=== PATIENT | female | born 1955 | race Caucasian/White ===

== ENCOUNTER 2021-01-19 14:54 | Outpatient (REF) | payer OTHER, SELFPAY ==
--- NOTE | ~2021-01-19 | XR_ITS ---
EXAMINATION: KNEE X-RAY CLINICAL INFORMATION: Right knee pain COMPARISON: None TECHNIQUE: Standing AP view of both knees and lateral and sunrise view of the right knee FINDINGS: Right knee: There is mild valgus angulation. Bone alignment is otherwise normal. There is tricompartment arthritis with joint space narrowing and osteophyte formation. There is a large joint effusion. Left knee: The left patella is more laterally positioned than the right. AP view of the left knee is otherwise unremarkable. XR/XR knee standing BI IMPRESSION: Right knee: Tricompartment arthritis, joint effusion and mild valgus angulation.
--- NOTE | ~2021-01-19 | XR_ITS ---
EXAMINATION: KNEE X-RAY CLINICAL INFORMATION: Right knee pain COMPARISON: None TECHNIQUE: Standing AP view of both knees and lateral and sunrise view of the right knee FINDINGS: Right knee: There is mild valgus angulation. Bone alignment is otherwise normal. There is tricompartment arthritis with joint space narrowing and osteophyte formation. There is a large joint effusion. Left knee: The left patella is more laterally positioned than the right. AP view of the left knee is otherwise unremarkable. XR/XR knee RT 2V IMPRESSION: Right knee: Tricompartment arthritis, joint effusion and mild valgus angulation.
== END 2021-01-19 14:55 | disposition home or self-care (01) ==
LOC: HO.HOSX 14:54
PROVIDERS: Visit Provider Orthopaedic Surgery
DX: M25.562 Pain in left knee (principal); M25.561 Pain in right knee
CPT/HCPCS: 73560; 73565

== ENCOUNTER → 2021-01-20 09:47 | Outpatient (BNVA) | payer OTHER, SELFPAY | PROVIDERS: PCP Family Medicine; Visit Provider Orthopaedic Surgery | DX: M17.11 Unilateral primary osteoarthritis, right knee (principal) | CPT/HCPCS: 20610; J1040 ==

== ENCOUNTER → 2021-09-15 15:13 | Outpatient (BNVA) | payer OTHER, SELFPAY | PROVIDERS: Visit Provider Physician Assistant | DX: M17.11 Unilateral primary osteoarthritis, right knee (principal) | CPT/HCPCS: 20610; J1040 ==

== ENCOUNTER → 2021-11-15 09:05 | Outpatient (BNVA) | payer OTHER, SELFPAY | PROVIDERS: PCP Family Medicine; Visit Provider Orthopaedic Surgery | DX: Z01.812 Encounter for preprocedural laboratory examination (principal); Z01.810 Encounter for preprocedural cardiovascular examination ==

== ENCOUNTER → 2021-12-16 12:32 | Outpatient (BNVA) | payer OTHER, SELFPAY | PROVIDERS: Visit Provider Physician Assistant ==

== ENCOUNTER 2021-12-21 08:05 | Inpatient (IN) | payer OTHER, SELFPAY ==
--- NOTE | 2021-12-09 | ECG_ITS ---
Test Reason : preop Blood Pressure : / mmHG Vent. Rate : 072 BPM Atrial Rate : 072 BPM P-R Int : 160 ms QRS Dur : 112 ms QT Int : 398 ms P-R-T Axes : 078 -59 062 degrees QTc Int : 435 ms Normal sinus rhythm Left axis deviation Minimal voltage criteria for LVH, may be normal variant ( [place] product ) Abnormal ECG No previous ECGs available Referred By: Justin Gonsalez Electronically Signed By:FRANCISCO J GAVIRIA
[2021-12-09 12:01] VITALS: BP 134/76; PULSE 68; RESP 20; O2SAT 96; BMI 37.1
--- NOTE | 2021-12-09 12:20 | P.CONAN_ITS ---
Documented by User: Alva Arguelles NP 12/20/21 10:35 HPI - Anesthesia Eval Consult details Narrative: 66yo F for Right Knee Replacement Total PCP cleared [facility] Active Problems Active Problems: All Active Problems (Updated 12/09/21 @ 11:56 by Alicia Wiley, GINO) Primary osteoarthritis of right knee (Acute) Past Medical History Medical History Laurie-Danlos syndrome Hyperlipidemia Hypertension Osteoarthritis Family History Family History Father No problems noted. Mother No problems noted. Family history of problems with anesthesia: No Surgical History Surgical History History of bowel resection History of total left hip replacement Hx of colonoscopy Hx of right inguinal hernia repair History of Problems with Anesthesia: No Social History Social History Are you a primary daycare manager to a significant other at home: No Do you presently have visiting nurse or other home services: No Alcohol intake: current Alcohol intake frequency: a few times a week Patient Tobacco Use Status: Former Tobacco user Quit Date: 9 yrs ago Tobacco use type: Cigarette Second Hand Smoke Exposure: No Use of substances other than those prescribed or required for medical reasons: Yes Substance Use Frequency: Occasionally Have you been hit, kicked, punched, or otherwise hurt by someone within the past year? If so, by whom?: No Are you DNR?: No Advance Directives: No Advance Directives Information Provided: Yes (Given to patient - Daughter Betty tolliver HCP) Advance Directives on File: No Recently lost weight without trying: No Eating poorly because of decreased appetite: No Nutrition Risks: No Nutritional Risk Patient : No Poor oral hygiene: No (perm lower bridge, chip upper front in back of tooth) Current occupational status: employed Current occupation: mechatronics technician Narrative Narrative: No recent illness NO CP/SOB with >4 mets as mechatronics technician Meds Allergies Allergy/AdvReac Type Severity Reaction Status Date / Time No Known Allergies Allergy Verified 12/21/21 08:56 Home Medications Medication Instructions Recorded Confirmed Last Taken Type hydrochlorothiazide 12.5 mg tablet 12.5 mg PO DAILY 01/20/21 12/09/21 Unknown History ibuprofen 800 mg tablet 800 mg PO Q4-6H 01/20/21 12/21/21 12/15/21 08:00 History lisinopril 10 mg tablet 10 mg PO DAILY 01/20/21 12/21/21 12/20/21 History docusate sodium 100 mg capsule 100 mg PO BID 12/09/21 12/09/21 Unknown History (Colace) Exam Exam Date and Time: December 09, 2021 1220 Height,Weight and Vital Signs: Height 5 ft 6 in Weight 104.326 kg Last Vital Signs Pulse 68 12/09/21 12:01 Resp 20 12/09/21 12:01 BP 134/76 12/09/21 12:01 Pulse Ox 96 12/09/21 12:01 Pertinent Lab Results Pertinent Lab Results: Labs from outside facility 11/26/21 CBC WNL BMP WNL Narrative Narrative: EKG 12/2021 Vent. Rate : 072 BPM ? ? Atrial Rate : 072 BPM ?? P-R Int : 160 ms? QRS Dur : 112 ms ? ? QT Int : 398 ms ? ? ? P-R-T Axes : 078 -59 062 degrees ?? QTc Int : 435 ms ? Normal sinus rhythm Left axis deviation Minimal voltage criteria for LVH, may be normal variant ( [place] product ) Abnormal ECG No previous ECGs available Airway Mallampati Class: II TM Dist: >3cm Neck ROM: Full Adult Head Mouth w/Numbe Teeth: 1. Implants Heart: RRR Lungs: CTAB Assessment and Plan Final Anesthetic Review Family History of Problems with Anesthesia: No History of Problems with Anesthesia: No Documented by User: Terry Bajwa MD 12/21/21 09:14 [facility] Past Medical History Medical History Laurie-Danlos syndrome Hyperlipidemia Hypertension Osteoarthritis Family History Family History Father No problems noted. Mother No problems noted. Surgical History Surgical History History of bowel resection History of total left hip replacement Hx of colonoscopy Hx of right inguinal hernia repair Social History Social History Are you a primary daycare manager to a significant other at home: No Do you presently have visiting nurse or other home services: No Alcohol intake: current Alcohol intake frequency: a few times a week Patient Tobacco Use Status: Former Tobacco user Quit Date: 9 yrs ago Tobacco use type: Cigarette Second Hand Smoke Exposure: No Use of substances other than those prescribed or required for medical reasons: Yes Substance Use Frequency: Occasionally Have you been hit, kicked, punched, or otherwise hurt by someone within the past year? If so, by whom?: No Are you DNR?: No Advance Directives: No Advance Directives Information Provided: Yes (Given to patient - Daughter Betty tolliver HCP) Advance Directives on File: No Recently lost weight without trying: No Eating poorly because of decreased appetite: No Nutrition Risks: No Nutritional Risk Patient : No Poor oral hygiene: No (perm lower bridge, chip upper front in back of tooth) Current occupational status: employed Current occupation: mechatronics technician Meds Allergies Allergy/AdvReac Type Severity Reaction Status Date / Time No Known Allergies Allergy Verified 12/21/21 08:56 Home Medications Medication Instructions Recorded Confirmed Last Taken Type hydrochlorothiazide 12.5 mg tablet 12.5 mg PO DAILY 01/20/21 12/09/21 Unknown History ibuprofen 800 mg tablet 800 mg PO Q4-6H 01/20/21 12/21/21 12/15/21 08:00 History lisinopril 10 mg tablet 10 mg PO DAILY 01/20/21 12/21/21 12/20/21 History docusate sodium 100 mg capsule 100 mg PO BID 12/09/21 12/09/21 Unknown History (Colace) Exam Airway Adult Head Mouth w/Numbe Teeth: 1. Implants Assessment and Plan Assessment Anesthesia Assessment: Anesthesia Plan Discussed and Chart Reviewed Final Anesthetic Review NPO: Yes ASA Class: III Final Preanesthetic Review: No Changes in Pt Med Stat, Meds/Allgs Chart Reviewed, Consent Obtained/Reviewed and Anes Risks/Benef Reviewed Patient Risk: Intermediate Procedure Risk: Intermediate Anesthetic Plan Anesthetic Plan: MAC:, Spinal and Regional Block Disposition: Standard PACU
[2021-12-09 14:26] LABS: MRSA Nasal PCR NEGATIVE (Negative); SA Nasal PCR NEGATIVE (Negative)
[2021-12-21] VITALS (12 sets, daily range): BP systolic 132–166; BP diastolic 64–87; PULSE 61–81; RESP 14–20; TEMP 35.9–37.4; O2SAT 93–97
--- NOTE | ~2021-12-21 | XR_ITS ---
EXAMINATION: XR KNEE, RIGHT CLINICAL INFORMATION: Right TKA. COMPARISON: None TECHNIQUE: Four views of the right knee. FINDINGS: There is a total right knee arthroplasty with prosthetic components in satisfactory alignment. Immediate postoperative changes are noted along the suprapatellar bursa. XR/XR knee RT 2V IMPRESSION: Total right knee arthroplasty with prosthetic components in satisfactory alignment. Immediate postoperative changes are noted.
[2021-12-21 08:45] LABS: COVID-19 Test Negative (Negative)
[2021-12-21] MEDS: Lactated Ringers 1,000 ML 100 ML IVCONT (09:05)
--- NOTE | 2021-12-21 10:08 | MHC.SHP ---
Pre-Procedural Eval Section A Date of Service: 12/21/21 The patient is an INPATIENT: No Changes since office visit: Yes Patient answered all questions; No Cold of Flu in the past 2 weeks, No New Medical Problems and No Changes in Medication The History & Physical has been completed within 30 days and I have reviewed it.: Yes Section B Chief Complaint: RT TKA Allergies: Allergies Allergy/AdvReac Type Severity Reaction Status Date / Time No Known Allergies Allergy Verified 12/21/21 08:56 Plan I have reviewed the history and physical and performed a pertinent physical examination on my patient. No changes have occurred unless specified.
--- NOTE | 2021-12-21 11:57 | PM.OP ---
Brief Operative Note Date of Service: 12/21/21 Pre-op diagnosis: right knee OA Post-op diagnosis: same Procedure: Right TKA Implants: Styrker triathalon cemented PS 01/06/19TS/32a Surgeon: Justin Gonsalez MD Anesthesia: regional and spinal Was an Internal Medicine Nurse used for this Procedure?: Yes Internal Medicine Nurse: Sirisha Johnson Estimated blood loss (mL): 150 IV fluids (mL): 800 Pathology: other Condition: stable Disposition: PACU
[2021-12-21] MEDS: Dextrose 5 % and 0.45 % NaCl 1,000 ML 80 ML IVCONT (13:23)
[2021-12-21] MEDS: oxyCODONE HCl Immed Release 5 MG TABLET PO ×2 (13:28→17:38)
--- NOTE | 2021-12-21 13:32 | MHC.CM.PN ---
Addendum entered by Hailey Angulo 12/21/21 13:40: INVALID HCP ON FILE CASE MANAGEMENT TO HELP WITH COMPLETION OF NEW DOCUMENT Original Note: REFERRAL PLACED TO [facility] IN ANTICIPATION OF HOME P.T. NEEDS. CASE MANAGEMENT ASSESSMENT TO BE PERFORMED ONCE PATIENT IS ON UNIT
--- NOTE | 2021-12-21 14:31 | MHC.CM.PN ---
PATIENT IS INDEPENDENT WITH HER ADLS. SHE WORKS AND IS ABLE TO TRANSPORT SELF NEW HCP COMPLETED AND UPLOADED INTO [facility]. SHE AGREES TO THE REFERRAL TO [facility]. CASE MANAGEMENT FOLLOWING FOR DC PLANS.
--- NOTE | 2021-12-21 16:29 | P.CONHOSP_ITS ---
History of Present Illness Data of Consult Service Date: 12/21/21 Primary Care Provider: Chance Alfonso MD HPI 66 female with HTN on lisinopril, HCTZ; HLD on no meds, Laurie-Danlos syndrome, and osteoarthtis. She had elective right knee arthroplasty today. She has active medical isues post op. Review of Systems Review of Systems: Gen: no fever Resp: no sob, no cough CV: no chest, no MELGAR, no leg edema GI: No n/v, no abd pain Neuro: No confusion MSK: pain in the operated knee [facility] Medical History (Updated 12/21/21 @ 17:51 by Miguel Rowell MD) Laurie-Danlos syndrome Hyperlipidemia Hypertension Osteoarthritis Family History Father No problems noted. Mother No problems noted. Surgical History History of bowel resection History of total left hip replacement Hx of colonoscopy Hx of right inguinal hernia repair Social History Household Members: Friend(s) Household Members Other:: Room mate Housing: House Are you a primary hiv/aids care nurse to a significant other at home: No Do you presently have visiting nurse or other home services: No Alcohol intake: current Alcohol intake frequency: a few times a week Patient Tobacco Use Status: Former Tobacco user Quit Date: 9 yrs ago Tobacco use type: Cigarette e-Cigarette/Vaping Use: Never Used Second Hand Smoke Exposure: No Substance Use Type: Marijuana service: No Current occupational status: employed Current occupation: housekeeper/custodian/laundry worker Meds Allergies Allergy/AdvReac Type Severity Reaction Status Date / Time No Known Allergies Allergy Verified 12/21/21 08:56 Active Medications: Current Medications Acetaminophen (Acetaminophen 325 Mg Tablet) 650 mg PO Q6H PRN PRN Reason: Pain, Mild (Pain Scale 1-3) Celecoxib (Celecoxib 100 Mg Capsule) 100 mg PO BID [facility] Docusate Sodium (Docusate Sodium 100 Mg Capsule) 100 mg PO BID [facility] Hydrochlorothiazide (Hydrochlorothiazide 12.5 Mg Tablet) 12.5 mg PO DAILY [facility]; Protocol Hydromorphone HCl (Hydromorphone Hcl 1 Mg/Ml Syringe) 0.25 mg IVPUSH Q4H PRN; Protocol PRN Reason: Pain, Severe (Pain Scale 7-10) Dextrose/Sodium Chloride (D51/2ns) 1,000 mls @ 80 mls/hr IVCONT .[id number] [facility] Last Admin: 12/21/21 13:23 Dose: 80 mls/hr Documented by: Cefazolin Sodium/Dextrose (Ancef) 2 gm in 50 mls @ 100 mls/hr IV POSTOP [facility] Lisinopril (Lisinopril 10 Mg Tablet) 10 mg PO DAILY [facility]; Protocol Ondansetron HCl (Ondansetron Hcl 4 Mg/2 Ml Vial) 4 mg IVPUSH Q8H PRN PRN Reason: Nausea and Vomiting Oxycodone HCl (Oxycodone Hcl Immed Release 5 Mg Tablet) 5 mg PO Q4H PRN PRN Reason: Pain, Moderate (Pain Scale 4-6 Last Admin: 12/21/21 13:28 Dose: 5 mg Documented by: Oxycodone HCl (Oxycodone Hcl Er 10 Mg Tab.Er.12h) 10 mg PO BID [facility] Senna (Sennosides 8.6 Mg Tablet) 17.2 mg PO BEDTIME PRN PRN Reason: Constipation Sodium Chloride (0.9 % Sodium Chloride Flush 3 Ml Syringe) 3 ml IVFLUSH QSHIFT [facility] Last Admin: 12/21/21 16:16 Dose: Not Given Documented by: Home Medications Medication Instructions Recorded Confirmed Last Taken Type hydrochlorothiazide 12.5 mg tablet 12.5 mg PO DAILY 01/20/21 12/09/21 Unknown History ibuprofen 800 mg tablet 800 mg PO Q4-6H 01/20/21 12/21/21 12/15/21 08:00 History lisinopril 10 mg tablet 10 mg PO DAILY 01/20/21 12/21/21 12/20/21 History docusate sodium 100 mg capsule 100 mg PO BID 12/09/21 12/09/21 Unknown History (Colace) Physical Exam Vital Signs and Narrative: Vital Signs: Last Vital Signs Temp 97.7 F 12/21/21 15:10 Pulse 73 12/21/21 15:10 Resp 14 12/21/21 15:10 BP 141/73 H 12/21/21 15:10 Pulse Ox 93 12/21/21 15:10 BMI result Body Mass Index 37.1 Const: Other: General: AO X 3, no acute distress Resp: CTA bilateral CVS: S1,S2,RRR GI: +BS, NT, no distention Skin: No rash Neuro: motor grossly intact Psych: appropriate affect Results Labs Labs: Laboratory Results - last 24 hr 12/21/21 08:05 COVID-19 ([facility]) Negative COVID-19 Clin Com See Note Imaging Radiologist's Impressions: Impressions Knee X-Ray 12/21/21 13:21 IMPRESSION: Total right knee arthroplasty with prosthetic components in satisfactory alignment. Immediate postoperative changes are noted. Assessment and Plan Plan 66/Female with HTN, HLD, Elers-Danlos had right TkR 1/HTN--restart home meds of HCTZ, Lisinopril 2/HLD--not on meds 3/s/p right TKR-management per surgery 4/ given no active issues, will sign off
[2021-12-21] MEDS: Docusate Sodium 100 MG CAPSULE PO (20:40)
[2021-12-21] MEDS: Celecoxib 100 MG CAPSULE PO (20:40)
[2021-12-21] MEDS: oxyCODONE HCl ER 10 MG TAB.ER.12H PO (20:41)
[2021-12-21] MEDS: 0.9 % Sodium Chloride Flush 3 ML SYRINGE IVFLUSH (20:42)
[2021-12-22] MEDS: Dextrose 5 % and 0.45 % NaCl 1,000 ML 80 ML IVCONT ×2 (02:38→12:39)
[2021-12-22] MEDS: HYDROmorphone HCl 1 MG/ML SYRINGE 0.25 MG IVPUSH (02:38)
[2021-12-22 03:42] VITALS: BP 146/57; PULSE 78; RESP 16; TEMP 36.7; O2SAT 99
[2021-12-22 05:48] LABS: MANUAL DIFF FLAG NO
[2021-12-22] MEDS: oxyCODONE HCl Immed Release 5 MG TABLET PO ×3 (05:51→17:47)
[2021-12-22 05:58] LABS: Basophils Percent Auto 0.2 % (0-2); Eosinophils Percent Auto 0.3 % (0-4); Hematocrit 27.4 % (37.0-47.0); Hemoglobin 9.5 g/dl (12.0-16.0); Imm Gran Abs Auto 0.03 X10*3/uL (0.00-0.03); Imm Gran Pct Auto 0.5 % (0.0-0.4); Lymphocytes Absolute Auto 0.9 X10*3/uL (1.2-4.9); Mean Corpuscular HGB Conc 34.7 g/dl (31.0-35.0); Mean Corpuscular Hemoglobin 34.7 pg (27.0-33.0); Monocytes Absolute Auto 0.6 X10*3/uL (0.1-1.2); Monocytes Percent Auto 9.4 % (2-11); Neutrophils Absolute Auto 4.3 x10*3/uL (2.0-8.3); Neutrophils Percent Auto 73.6 % (45-73); Platelet Count 147 X10*3/uL (160-400); Red Blood Count 2.74 X10*6/uL (4.20-5.50); Red Cell Distribution Width 12.4 % (11.0-16.0); White Blood Count 5.9 X10*3/uL (4.8-10.8)
[2021-12-22 06:15] LABS: Anion Gap 10 (12-20); Blood Urea Nitrogen 13 mg/dL (9-16); Calcium 8.6 mg/dL (8.4-10.2); Carbon Dioxide 28 mmol/L (22-29); Chloride 102 mmol/L (96-108); Creatinine Clr Calc Pharmacy 91.2; Estimated Glomerular Filt Rate > 60; Glucose Fasting 135 mg/dL (60-99); Potassium 3.8 mmol/L (3.3-5.1); Sodium 136 mmol/L (135-145)
[2021-12-22] MEDS: Celecoxib 100 MG CAPSULE PO ×2 (07:55→19:56)
[2021-12-22] MEDS: hydroCHLOROthiazide 12.5 MG TABLET PO (07:56)
[2021-12-22] MEDS: lisinopriL 10 MG TABLET PO (07:57)
[2021-12-22] MEDS: oxyCODONE HCl ER 10 MG TAB.ER.12H PO ×2 (07:58→19:55)
[2021-12-22] MEDS: Docusate Sodium 100 MG CAPSULE PO (07:59)
[2021-12-22 08:00] VITALS: BP 160/74; PULSE 75; RESP 18; TEMP 36.3; O2SAT 98
--- NOTE | 2021-12-22 08:01 | PM.PNORT ---
Subjective Subjective Date of Service: 12/22/21 Interval history: Postop day 1 status post right total knee arthroplasty No overnight events She has been out of bed using the commode Most her pain is in the posterior aspect of the knee Denies chest pain, shortness of breath or palpitations. Physical Exam Vital Signs: Vital Signs: Last Vital Signs Temp 98.1 F 12/22/21 03:42 Pulse 78 12/22/21 03:42 Resp 16 12/22/21 03:42 BP 146/57 H 12/22/21 03:42 Pulse Ox 99 12/22/21 03:42 BMI result Body Mass Index 37.1 Const: General: cooperative, healthy appearing and no acute distress Resp: Effort & Inspection: normal respiratory effort and able to speak in complete sentences Cardio: Rate: regular rate Peripheral pulses: Peripheral pulses 2+ throughout GI: Palpation (GI): Soft to palpation Skin: General skin exam: no rashes or lesions noted Extrem: Other: Bandage clean dry and intact. Calf supple nontender. Neurovascular intact. Procedures Date of Service Date of Service: 12/22/21 Progress Note: A&P Assessment and plan (1) Status post total right knee replacement: Status: Acute Assessment and Plan: Continue pain mgmnt Begin Aspirin for dvt ppx begin PT for RT TKA Dispo planning-Pending PT eval, pain mgmnt Fall Risk Details Current Medications: Current Medications Acetaminophen (Acetaminophen 325 Mg Tablet) 650 mg PO Q6H PRN PRN Reason: Pain, Mild (Pain Scale 1-3) Aspirin (Aspirin 325 Mg Tablet) 325 mg PO BID [facility] Celecoxib (Celecoxib 100 Mg Capsule) 100 mg PO BID [facility] Last Admin: 12/22/21 07:55 Dose: 100 mg Documented by: Docusate Sodium (Docusate Sodium 100 Mg Capsule) 100 mg PO BID [facility] Last Admin: 12/22/21 07:59 Dose: 100 mg Documented by: Hydrochlorothiazide (Hydrochlorothiazide 12.5 Mg Tablet) 12.5 mg PO DAILY [facility]; Protocol Last Admin: 12/22/21 07:56 Dose: 12.5 mg Documented by: Hydromorphone HCl (Hydromorphone Hcl 1 Mg/Ml Syringe) 0.25 mg IVPUSH Q4H PRN; Protocol PRN Reason: Pain, Severe (Pain Scale 7-10) Last Admin: 12/22/21 02:38 Dose: 0.25 mg Documented by: Dextrose/Sodium Chloride (D51/2ns) 1,000 mls @ 80 mls/hr IVCONT .[id number] [facility] Last Admin: 12/22/21 02:38 Dose: 80 mls/hr Documented by: Cefazolin Sodium/Dextrose (Ancef) 2 gm in 50 mls @ 100 mls/hr IV POSTOP [facility] Lisinopril (Lisinopril 10 Mg Tablet) 10 mg PO DAILY [facility]; Protocol Last Admin: 12/22/21 07:57 Dose: 10 mg Documented by: Ondansetron HCl (Ondansetron Hcl 4 Mg/2 Ml Vial) 4 mg IVPUSH Q8H PRN PRN Reason: Nausea and Vomiting Oxycodone HCl (Oxycodone Hcl Immed Release 5 Mg Tablet) 5 mg PO Q4H PRN PRN Reason: Pain, Moderate (Pain Scale 4-6 Last Admin: 12/22/21 05:51 Dose: 5 mg Documented by: Oxycodone HCl (Oxycodone Hcl Er 10 Mg Tab.Er.12h) 10 mg PO BID [facility] Last Admin: 12/22/21 07:58 Dose: 10 mg Documented by: Senna (Sennosides 8.6 Mg Tablet) 17.2 mg PO BEDTIME PRN PRN Reason: Constipation Sodium Chloride (0.9 % Sodium Chloride Flush 3 Ml Syringe) 3 ml IVFLUSH QSHIFT [facility] Last Admin: 12/22/21 08:00 Dose: Not Given Documented by: Time Spent With Patient Time: Total time spent is greater than 50% in coordination of care (as documented) at patient's floor/unit and/or counseling patient: Time with patient: less than 15 minutes Quality Stroke Does the patient have a stroke diagnosis?: No VTE Prior VTE?: No VTE Risk Level:: Surgical - very high VTE Device Contraindication: N/A - Device Ordered VTE Drug Contraindication: N/A - Med Ordered
--- NOTE | 2021-12-22 08:07 | HO.POSTANES ---
Post Anesthesia Evaluation Post Anesthesia Evaluation Vital Signs: Vital Signs Temp Pulse Resp BP Pulse Ox 12/22/21 03:42 98.1 F 78 16 146/57 H 99 12/21/21 23:22 96.6 F L 81 14 149/74 H 96 Anesthesia: Spinal and Nerve Block Mental Status: Awake Pain Control: Satisfactory (Pain worse after block wore off but improving) Nausea/Vomiting: None Hydration: Adequate Anesthesia-Related Issues: No Anes. Related Issues
--- NOTE | 2021-12-22 09:45 | W.PM.OPN ---
Operative Note Operative Note Date of Service: 12/21/21 Narrative: Date of Service: 12/21/21 Pre-op diagnosis: right knee OA Post-op diagnosis: same Procedure: Right TKA Implants: Styrker triathalon cemented PS 01/06/19TS/32a Surgeon: Justin Gonsalez MD Anesthesia: regional and spinal Was an Drier Transfer Car Operator used for this Procedure?: Yes Drier Transfer Car Operator: Sirisha Johnson Estimated blood loss (mL): 150 IV fluids (mL): 800 Pathology: other Condition: stable Disposition: PACU Procedure in detail: The patient was brought to the operating room and prepped and draped in standard sterile fashion. A time-out was called to identify proper site proper procedure proper surgeon and IV antibiotics were administered. 1 g of IV tranexamic acid was administered. I began by making a midline incision to the retinaculum and performed a medial parapatellar arthrotomy. The patella was translated laterally and the knee was flexed up.The medial compartmetn was eburnated. I performed a small medial peel and resected the infrapatellar fat pad. Kathie's line was then used to drill my intramedullary femoral guide and my distal femur cut of 10 mm was made in 5 degrees of valgus while protecting the soft tissues. I then measured a #3 femur and placed my cutting guide and made my anterior posterior and chamfer cuts protecting the soft tissues at all times. I then made my box but removing the PCL. Once I was satisfied with my cuts I turned my attention to the tibia. I removed the meniscus medially and laterally and , using an external cutting guide, in line with the tibial crest and the third ray, I made my distal tibial cut in 0 deg slope of while protecting the posterior soft tissues at all times. An extension block was used to confirm appropriate amount of bony resection. The knee was well balanced. I then sized a #3 tibia and once I was satisfied that there was complete tibial coverage I placed my trial and with the trial femur in place took the knee through range of motion. I was satisfied with the extension and flexion as well as the stability at 0, 30 and 90 degrees. I then turned my attention to the patella where I removed 1 cm from the undersurface of the patella and then trialed a 32a patellar button. Again the knee was taken through range of motion I was satisfied with the tracking. I then returned to the femur and drilled my femoral lug holes and prepared the tibia. A femoral bone plug was placed and the knee was irrigated copiously. 2 bags of [place] bone cement was mixed on the back table. I then cemented the patella, tibia and femur in standard fashion while applying axial compression. Once the cement was dry and all excess cement had been removed, I trialed different inserts until I selected a #19 TS insert. The final insert was placed and a 3 minutes iodine soak with local TXA was performed. The knee was then closed with a running Quill suture, a 3 0 subcuticular absorbable suture and skin glue. The dressings were then removed and a skin tear measuring 6 cm occurred over the anterior tibia . This required nylon suture closure as there were areas of full-thickness involvement. Sterile dressing were then applied and the patient was brought to the recovery room.
[2021-12-22 12:00] VITALS: BP 146/59; PULSE 74; RESP 18; TEMP 36.6; O2SAT 96
[2021-12-22] MEDS: Aspirin 325 MG TABLET PO ×2 (12:22→19:56)
--- NOTE | 2021-12-22 13:38 | MHC.CM.PN ---
per multi dis rounds dc plan remanins home with hvns for home pt
[2021-12-22] MEDS: Acetaminophen 325 MG TABLET 650 MG PO (15:10)
[2021-12-22 15:23] VITALS: BP 116/58; PULSE 76; RESP 18; TEMP 37.4; O2SAT 96
[2021-12-22] MEDS: 0.9 % Sodium Chloride Flush 3 ML SYRINGE IVFLUSH (17:48)
[2021-12-22 19:23] VITALS: BP 129/55; PULSE 74; RESP 18; TEMP 37.9; O2SAT 96
[2021-12-22 23:17] VITALS: BP 130/59; PULSE 80; RESP 16; TEMP 35.9; O2SAT 95
[2021-12-23] MEDS: HYDROmorphone HCl 1 MG/ML SYRINGE 0.25 MG IVPUSH (02:04)
[2021-12-23 03:35] VITALS: BP 129/60; PULSE 81; RESP 16; TEMP 37.3; O2SAT 94
[2021-12-23] MEDS: Dextrose 5 % and 0.45 % NaCl 1,000 ML 80 ML IVCONT (03:56)
[2021-12-23 04:55] LABS: MANUAL DIFF FLAG NO
[2021-12-23 05:04] LABS: Basophils Percent Auto 0.5 % (0-2); Eosinophils Absolute Auto 0.1 X10*3/uL (0.0-0.4); Eosinophils Percent Auto 2.2 % (0-4); Hematocrit 28.6 % (37.0-47.0); Hemoglobin 9.7 g/dl (12.0-16.0); Imm Gran Abs Auto 0.03 X10*3/uL (0.00-0.03); Imm Gran Pct Auto 0.5 % (0.0-0.4); Lymphocytes Absolute Auto 1.4 X10*3/uL (1.2-4.9); Lymphocytes Percent Auto 21.4 % (20-40); Mean Corpuscular HGB Conc 33.9 g/dl (31.0-35.0); Mean Corpuscular Hemoglobin 34.9 pg (27.0-33.0); Mean Corpuscular Volume 102.9 fL (80.0-98.0); Mean Platelet Volume 9.5 fL (9.4-12.3); Monocytes Absolute Auto 0.6 X10*3/uL (0.1-1.2); Monocytes Percent Auto 8.8 % (2-11); Neutrophils Absolute Auto 4.3 x10*3/uL (2.0-8.3); Neutrophils Percent Auto 66.6 % (45-73); Platelet Count 169 X10*3/uL (160-400); Red Blood Count 2.78 X10*6/uL (4.20-5.50); Red Cell Distribution Width 12.9 % (11.0-16.0); White Blood Count 6.4 X10*3/uL (4.8-10.8)
[2021-12-23 05:16] LABS: Anion Gap 14 (12-20); Blood Urea Nitrogen 10 mg/dL (9-16); Calcium 8.7 mg/dL (8.4-10.2); Carbon Dioxide 27 mmol/L (22-29); Chloride 101 mmol/L (96-108); Creatinine Clr Calc Pharmacy 84.3; Estimated Glomerular Filt Rate > 60; Glucose Fasting 102 mg/dL (60-99); Potassium 3.5 mmol/L (3.3-5.1); Sodium 138 mmol/L (135-145)
[2021-12-23 07:05] VITALS: BP 138/63; PULSE 86; RESP 18; TEMP 37.5; O2SAT 93
[2021-12-23] MEDS: Acetaminophen 325 MG TABLET 650 MG PO (07:29)
[2021-12-23] MEDS: Aspirin 325 MG TABLET PO (07:30)
[2021-12-23] MEDS: lisinopriL 10 MG TABLET PO (07:31)
[2021-12-23] MEDS: oxyCODONE HCl Immed Release 5 MG TABLET PO ×2 (07:31→12:47)
[2021-12-23] MEDS: hydroCHLOROthiazide 12.5 MG TABLET PO (07:31)
[2021-12-23] MEDS: Docusate Sodium 100 MG CAPSULE PO (07:31)
[2021-12-23] MEDS: Celecoxib 100 MG CAPSULE PO (07:31)
--- NOTE | 2021-12-23 08:22 | P.DS_ITS ---
DS: Providers Provider Date of Service: 12/23/21 Date of admission: 12/21/21 08:05 Primary care physician: Chance Alfonso MD Consults: 12/21/21 13:39 Consult to Hospitalist Routine Consulting Provider: Hospitalist Reason For Exam: post op medical management DS: Diagnosis Discharge Diagnosis (1) Status post total right knee replacement: Status: Acute DS: Summary Hospital Course Hospital Course: The patient underwent a successful right total knee arthroplasty, was transferred to PACU and then to the floor to recover. During their stay, their vitals were stable, afebrile at 99.5. Labs were unremarkable, H/H 97./28.6. POD 1 she was started on ASA for dvt ppx and had PT 2x a day. Prior to discharge, her dressing was changed on the lower extremity, dry dressing applied with xeroform. Aquacel clean, dry and intact and she will be discharged home with VNA services. Time Spent with Patient Time attestation: Total time spent providing and/or coordinating discharge services: Discharge coordination time: Less than 30 minutes Quality: Stroke Does the patient have a stroke diagnosis?: No Physical Exam Vital Signs: Vital Signs: Last Vital Signs Temp 99.5 F 12/23/21 07:05 Pulse 86 12/23/21 07:05 Resp 18 12/23/21 07:05 BP 138/63 12/23/21 07:05 Pulse Ox 93 12/23/21 07:05 BMI result Body Mass Index 37.1 Const: General: cooperative, healthy appearing and no acute distress Resp: Effort & Inspection: normal respiratory effort and able to speak in complete sentences Cardio: Rate: regular rate Peripheral pulses: Peripheral pulses 2+ throughout GI: Palpation (GI): Soft to palpation Skin: General skin exam: no rashes or lesions noted Extrem: Other: incision clean dry and intact. Braeden intact. No erythema or joint effusion. Calf supple nontender. Neurovascularly intact. DS: Data Data Completed and Pending Pending studies at discharge: Pending at discharge 12/21/21 11:35 Surgical [PTH] Routine Labs on day of discharge: Laboratory Results - last 24 hr 12/23/21 12/23/21 04:11 04:11 WBC 6.4 RBC 2.78 L Hgb 9.7 L Hct 28.6 L MCV 102.9 H MCH 34.9 H MCHC 33.9 RDW 12.9 Plt Count 169 MPV 9.5 Immature Gran % (Auto) 0.5 H Neut % (Auto) 66.6 Lymph % (Auto) 21.4 Giles % (Auto) 8.8 Eos % (Auto) 2.2 Baso % (Auto) 0.5 Lymph # (Auto) 1.4 Giles # (Auto) 0.6 Eos # (Auto) 0.1 Baso # (Auto) 0.0 Abs Immat Gran (auto) 0.03 Absolute Neuts (auto) 4.3 Absolute Nucleated RBC 0.000 Nucleated RBC % (auto) 0.0 Sodium 138 Potassium 3.5 Chloride 101 Carbon Dioxide 27 Anion Gap 14 BUN 10 Creatinine 0.79 Estim Creat Clear Calc 84.3 Estimated GFR > 60 Fasting Glucose 102 H Calcium 8.7 Discharge Plan Discharge Patient Disposition: Home Health Service Discharge Diagnosis: RT TKA Referrals: Jenelle PAZ [Outside] - 1 Week Sirisha Johnson PA-C [Physician [employer] C[employer] Clerk] - 2 Weeks (01/06/22 1:00 [facility] [place] [facility] Sirisha Johnson PA-C) Discharge Medications: New acetaminophen 325 mg Tablet 650 mg PO Q6H PRN (Reason: Pain, Mild (Pain Scale 1-3)) 30 Days Qty: 240 0RF aspirin 325 mg Tablet 325 mg PO BID 42 Days Qty: 84 0RF oxycodone 5 mg Tablet 5 mg PO Q4H PRN (Reason: Pain, Moderate (Pain Scale 4-6) 7 Days Qty: 42 0RF Continued docusate sodium [Colace] 100 mg Capsule 100 mg PO BID 0RF lisinopril 10 mg tablet 10 mg PO DAILY 0RF hydrochlorothiazide 12.5 mg tablet 12.5 mg PO DAILY 0RF Discontinued ibuprofen 800 mg tablet 800 mg PO Q4-6H 0RF Discharge Orders: Discharge Order (Routine); Ordered 12/23/21 Ordered By: Sirisha Johnson Diet: regular diet Activity on Discharge: Use cane or walker Stand Alone Forms: Patient Portal Discharge page Care Plan Goals: Restore function of joint Health Concerns: none Plan of Treatment: Physical Therapy Pain management DVT prophylaxis Assessment: * Physical Therapy for Total knee arthroplasty: gait training, ROM 0-12, quad strength * Limit stair climbing * No showering, no tub bath-keep dressing clean, dry and intact * ---daily dry dressing changes to right lower extremity skin tear * No driving x6 weeks * Continue Aspirin twice a day x 6 weeks * Follow up with [facility] [place] [facility]ics in 2 weeks
--- NOTE | 2021-12-23 08:26 | P.F2F_ITS ---
Service Date Service Date: 12/23/21 Encounter Date of encounter: 12/23/21 Reasons for Services Signs and symptoms assessed: right knee pain, swelling, difficulty with ambulation. Right lower extremity skin tear- 3inches with nylon sutures. Please apply dry dressing daily. Reason for intermediate: wound care Reason for physical therapy: home safety and mobility, therapeutic exercises, restore joint function, gait/transfer training, ADL training and energy conservation Reason for occupational therapy: home safety and mobility, therapeutic exercises, restore joint function, gait/transfer training, ADL training and energy conservation Overseeing Care: Justin Gonsalez Homebound: Leaving the home is medically contraindicated at this time without the asist of a device and/or another person due th the listed conditions above and below. Reason homebound: unsteady gait / fall risk, leg weakness, pain with ambulation, pain with transfers, poor balance / fall risk and unable to drive Homebound supporting statement: Pt. is considered home bound due to recent surgery. Unable to drive, poor balance, poor gait mechanics. Certification: Based on the above findings, I certify that this patient is confined to the home and needs intermittent intermediate care, physical therapy and/or speech therapy, or continues to need occupational therapy. The patient is under my care, and I have initiated the establishment of the plan of care. The patient will be followed by a physician who will periodically review the plan of care.
--- NOTE | 2021-12-23 08:38 | MHC.CM.PN ---
PT TO DC HOME TODAY WITH CHARLEY PAZ FOR HOME PT. FAMILY TO TRANSPORT
[2021-12-23] MEDS: oxyCODONE HCl ER 10 MG TAB.ER.12H PO (09:49)
[2021-12-23 12:00] VITALS: BP 135/56; PULSE 56; RESP 18; TEMP 36.4; O2SAT 95
== END 2021-12-23 13:46 | disposition home health service (06) | DRG 470 ==
LOC: HO.SSS 08:39 → HO.SSSA 08:40 → HO.S3 13:19
PROVIDERS: Nurse Practitioner; Physician Assistant; Admitting Provider Orthopaedic Surgery; PCP Internal Medicine; Visit Provider Orthopaedic Surgery
PROC: 0SRC0J9 Replacement of Right Knee Joint with Synthetic Substitute, Cemented, Open Approach (ICD-10-PCS; CPT 27447; principal; 2021-12-21 09:30)
DX: M17.11 Unilateral primary osteoarthritis, right knee (principal); Q79.60 Ehlers-Danlos syndrome, unspecified; I10 Essential (primary) hypertension; E78.5 Hyperlipidemia, unspecified; Z20.822 Contact with and (suspected) exposure to COVID-19; Z87.891 Personal history of nicotine dependence; Z79.899 Other long term (current) drug therapy
CPT/HCPCS: 27447; 36415; 73560; 80048; 85025; 86850; 86900; 86901; 87635; 87640; 87641; 88305; 88311; 93005; 97110; 97116; 97162; 97530; C1713; C1776; J0690; J1100; J1170; J2250; J2370

== ENCOUNTER → 2022-01-06 12:45 | Outpatient (BNVA) | payer OTHER, SELFPAY | PROVIDERS: PCP Internal Medicine; Visit Provider Physician Assistant ==

== ENCOUNTER → 2022-02-03 14:08 | Outpatient (BNVA) | payer OTHER, SELFPAY | PROVIDERS: PCP Internal Medicine; Visit Provider Physician Assistant | DX: Z96.651 Presence of right artificial knee joint (principal) ==

== ENCOUNTER 2022-03-17 07:04 | Outpatient (REF) | payer OTHER, SELFPAY | END 2022-03-17 07:05 | disposition home or self-care (01) | LOC: HO.HOSX 07:04 | PROVIDERS: Visit Provider Orthopaedic Surgery | DX: Z13.89 Encounter for screening for other disorder (principal) ==

== ENCOUNTER 2022-03-25 11:00 | Outpatient (RCR) | payer OTHER, SELFPAY ==
--- NOTE | 2022-01-06 14:08 | MHC.PT.EP ---
[facility] [place] Office [place] Office [place] Office [address] [place] Beltrán [address] [phone] F: [phone] F: [phone] F: [phone] F: [phone] Physical Therapy Plan of Care Date of Evaluation: Date of Surgery: 12/21/21 Diagnosis: R TKA Assessment: pt presents post-op R TKA on 12/21/21. pt presents to physical therapy with pain, decreased range of motion, decreased strength, impaired functional mobility, impaired postural awareness, and gait deviations. pt is a good candidate for skilled PT due to age, potential remediation of impairments, typical disease/condition progression and prognosis, comorbidities, and motivation. pt would benefit from tailored strengthening and stretching exercise program, functional training, gait training, postural re-training, neuromuscular re-education, modalities as needed for pain, equipment safety demonstration. Frequency and Duration: The patient will be seen 2x/wk for 6 wks Short Term Goals: pt will be I w/ HEP to promote self-management of condition. pt will improve R knee extension to 0 degrees to normalize gait pattern w/ improved heel strike on even ground w/ LRAD. Longterm Goals: pt will report a statistically significant improvement in self-reported outcome measure, LEFI, to promote return to PLOF. pt will ascend/descend 4 stairs w/ reciprocal pattern to promote ease in accessing basement to be I w/ laundry. Treatment Plan: Modalities to reduce pain, spasms and effusion. Manual therapy to restore motion and function. Therapeutic exercise to improve strength and flexibility. Neuromuscular re-education for posture and balance. Therapeutic activities to return to functional activities of daily living. Electronically signed by: Shelby Campa PT, DPT Please sign and return to therapist. Thank you for your referral.
--- NOTE | ~2022-03-25 | XR_ITS ---
EXAMINATION: 1. RADIOGRAPHS BILATERAL AP STANDING KNEES 2. RADIOGRAPHS RIGHT KNEE, 2 VIEWS CLINICAL INFORMATION: Pain COMPARISON: Right knee radiographs 12/21/2021 and bilateral standing knee radiographs 01/20/2021 TECHNIQUE: Standing AP radiographs of both knees were obtained in addition to lateral and patellar sunrise views of the right knee. FINDINGS: Right knee: Patient is status post right cemented total knee arthroplasty. Components are in expected orientation. No evidence of periprosthetic fracture. There is some hypertrophic bony formation along the lateral aspect of the patella. There is mild soft tissue swelling of the anterior right knee. Left knee: No fracture or dislocation of the left knee. There is mild narrowing of the medial left joint compartment. Small tricompartmental marginal osteophytes of the left knee. XR/XR knee standing BI IMPRESSION: -Unremarkable post arthroplasty radiographs of the right knee. -Mild to moderate degenerative changes of the left knee.
--- NOTE | ~2022-03-25 | XR_ITS ---
EXAMINATION: 1. RADIOGRAPHS BILATERAL AP STANDING KNEES 2. RADIOGRAPHS RIGHT KNEE, 2 VIEWS CLINICAL INFORMATION: Pain COMPARISON: Right knee radiographs 12/21/2021 and bilateral standing knee radiographs 01/20/2021 TECHNIQUE: Standing AP radiographs of both knees were obtained in addition to lateral and patellar sunrise views of the right knee. FINDINGS: Right knee: Patient is status post right cemented total knee arthroplasty. Components are in expected orientation. No evidence of periprosthetic fracture. There is some hypertrophic bony formation along the lateral aspect of the patella. There is mild soft tissue swelling of the anterior right knee. Left knee: No fracture or dislocation of the left knee. There is mild narrowing of the medial left joint compartment. Small tricompartmental marginal osteophytes of the left knee. XR/XR knee RT 2V IMPRESSION: -Unremarkable post arthroplasty radiographs of the right knee. -Mild to moderate degenerative changes of the left knee.
--- NOTE | 2022-04-12 11:25 | MHC.PT.DC ---
[facility] [place] Office [place] Office [place] Office [address] [place] Beltrán [address] [phone] F: [phone] F: [phone] F: [phone] F: [phone] Physical Therapy Discharge Report Diagnosis: R TKA Date of Surgery: 12/21/21 Date of Evaluation: 01/06/22 Date of Discharge: 04/12/22 Treatments to Date: 16 Cancellations to Date: 6 No Shows to Date: 0 Discharge Status: Improved Function Independent with HEP Patient Elected to Stop Discharge Summary: The patient called to discharge herself from physical therapy. She was progressing well in regards to her range of motion and bilateral lower extremity strength. She was still using a cane for ambulation for longer distances. The patient was consistently reporting difficulty with longer duration activities and endurance. She is independent with her home exercise program. She is discharged from this physical therapy plan of care to her home exercise program per her request. Electronically signed by: Shelby Campa PT, DPT Please sign and return to therapist. Thank you for your referral.
== END 2022-04-12 11:25 | disposition home or self-care (01) ==
LOC: HO.PT 11:00
PROVIDERS: Visit Provider Physician Assistant
DX: Z96.651 Presence of right artificial knee joint (principal)
CPT/HCPCS: 73560; 73565; 97110; 97112; 97140; 97162; 97530

== ENCOUNTER 2022-07-08 23:06 | Emergency (ER) | payer OTHER, SELFPAY ==
--- NOTE | ~2022-07-08 | XR_ITS ---
EXAMINATION: XR FOOT, RIGHT CLINICAL INFORMATION: Laceration COMPARISON: None TECHNIQUE: AP, lateral, and oblique views of the right foot. XR/XR foot RT 2V FINDINGS/IMPRESSION: Comminuted fracture of the second distal phalangeal tuft is associated soft tissue swelling laceration distally. No additional fractures. Degenerative changes of the tibiotalar joint. Large plantar calcaneal enthesophyte.
[2022-07-09] VITALS: BP 140/74; PULSE 64; RESP 20; TEMP 36.6; O2SAT 97; BMI 39.5
--- NOTE | 2022-07-09 00:49 | ED_ITS ---
HPI - General Adult General Chief complaint: Extremity Injury, Lower Stated complaint: severe toe inj on right foot Time Seen by Provider: 07/09/22 00:47 Source: patient Mode of arrival: ambulatory Limitations: no limitations History of Present Illness HPI narrative: Patient is a 67 year old female presenting to the emergency department today with a laceration to the right 2nd toe. Patient states that she dropped an empty vodka bottle that she was taking out to the recycling container, onto her foot, and the glass cut her toe. Patient denies any dizziness, lightheadedness, abdominal pain, nausea, vomiting, fever, chills, blurry vision, double vision, loss of vision, chest pain, difficulty breathing, shortness of breath, back pain, night sweats, pain with urination, increased urinary frequency, increased urinary urgency, blood in her urine or stool, syncope or a near syncopal episode, bowel incontinence, bladder incontinence, bowel retention, bladder retention, or any other complaints at this time. 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 Patient states that she just had her tetanus brought up to date 2 years ago. Onset (ago): minute(s) Location: right and lower extremity (2nd toe) Radiation: non-radiation Severity: moderate Severity scale (1-10): 3 Quality: aching Pain Consistency: constant Relieving factors: none Exacerbating factors: none Associated symptoms: denies other symptoms Treatments prior to arrival: none Related Data Home Medications Medication Instructions Recorded Confirmed hydrochlorothiazide 12.5 mg tablet 12.5 mg PO DAILY 01/20/21 01/06/22 lisinopril 10 mg tablet 10 mg PO DAILY 01/20/21 01/06/22 docusate sodium 100 mg capsule 100 mg PO BID 12/09/21 01/06/22 (Colace) Previous Rx's Medication Instructions Recorded acetaminophen 325 mg tablet 650 mg PO Q6H PRN Pain, Mild (Pain 12/23/21 Scale 1-3) 30 days #240 tabs aspirin 325 mg tablet 325 mg PO BID 42 days #84 tabs 12/23/21 oxycodone 5 mg tablet 5 mg PO Q4H PRN Pain, Moderate 01/07/22 (Pain Scale 4-6 7 days #42 tabs amoxicillin 500 mg tablet 2,000 mg PO ONCE 1 day #4 tabs 02/03/22 amoxicillin 875 mg-potassium 1 tab PO BID 10 days #20 tabs 07/09/22 clavulanate 125 mg tablet Allergies Allergy/AdvReac Type Severity Reaction Status Date / Time No Known Allergies Allergy Verified 02/03/22 14:21 Review of Systems Constitutional: Constitutional: Reports no additional constitutional complaints, Denies chills, Denies fever(s) and Denies night sweats Eyes: Eyes: Reports no additional eye complaints, Denies blurry vision, Denies change in vision, Denies diplopia, Denies eye discharge, Denies loss of vision and Denies eye pain ENT: Denies dizziness Cardiovascular: Cardiovascular: Reports no additional cardiovascular complaints, Denies chest pain, Denies lightheadedness, Denies Loss of Consciousness and Denies dyspnea Respiratory: Respiratory: Reports no additional respiratory complaints and Denies dyspnea Gastrointestinal: Gastrointestinal: Reports no additional gastrointestinal complaints, Denies abdominal pain, Denies melena, Denies hematochezia, Denies change in bowel habits and Denies change in stool character Genitourinary: Genitourinary: Denies hematuria, Denies urinary frequency, Denies dysuria, Denies urinary incontinence, Denies urinary hesitancy and Denies urinary urgency Musculoskeletal: Musculoskeletal: Reports no additional musculoskeletal complaints, Denies numbness and Denies tingling Comments: right 2nd toe injury Neurologic: Denies dizziness, Denies loss of vision, Denies numbness and Denies tingling Psychiatric: Psychiatric: Reports no additional psychiatric complaints Endocrine: Endocrine: Reports no additional endocrine complaints Hematologic/Lymphatic: Hematologic/Lymphatic: Reports no additional hematologic/lymphatic complaints Allergic/Immunologic: Allergic/Immunologic: Reports no additional allergic/immunologic complaints FORMERLY [facility] Past Medical History Attestation statement: The following information was validated with the patient. Source: old records reviewed Medical History Laurie-Danlos syndrome Hyperlipidemia Hypertension Osteoarthritis Surgical History History of bowel resection History of total left hip replacement Hx of colonoscopy Hx of right inguinal hernia repair Family History Family History Father No problems noted. Mother No problems noted. Social History Social History Household Members: Friend(s) Household Members Other:: Room mate Housing: House Are you a primary women's health care nurse practitioner to a significant other at home: No Do you presently have visiting nurse or other home services: No Alcohol intake: current Alcohol intake frequency: holidays/special occasions only Patient Tobacco Use Status: Never used Tobacco Tobacco use type: Cigarette e-Cigarette/Vaping Use: Never Used Second Hand Smoke Exposure: No Use of substances other than those prescribed or required for medical reasons: Yes Substance Use Type: Marijuana Advance Directives: No service: No Current occupational status: employed Current occupation: heavy duty custodian Physical Exam ED Vital Signs: Vital Signs - 24 hr 07/09/22 00:00 07/09/22 01:01 07/09/22 02:00 Temperature 97.9 F 97.8 F 97.8 F Pulse Rate 64 67 73 Respiratory Rate 20 18 16 Blood Pressure 140/74 H 116/98 H 145/78 H Pulse Oximetry 97 98 96 Oxygen Delivery Method Room Air Room Air Room Air BMI result Body Mass Index 39.5 Const General: cooperative, no acute distress, alert and awake Nutritional Appearance: well nourished Orientation/consciousness: patient oriented x3 Limitations: no limitations HENMT Head: Yes normal to inspection and Yes atraumatic Ears: hearing grossly normal bilaterally and external ears normal General nose exam: Normal external nose present, no nasal discharge noted and no epistaxis Face and sinus: Yes normal facial exam, No abrasion and No laceration Mouth: Normal oral and palatal mucosa present, no drooling and no muffled voice Eyes General: appearance normal, both eyes and all related structures Periorbital: periorbital findings normal Eyelids: Yes eyelids normal Conjunctivae: conjunctivae normal Pupils: Equal, round and reactive pupils present EOM: EOMs intact bilaterally Neck Neck: Yes normal visual inspection, Yes full ROM and Yes no lymphadenopathy Chest Chest palpation & inspection: normal inspection of the chest Resp Effort & Inspection: normal respiratory effort and able to speak in complete sentences Auscultation: clear to auscultation bilaterally Cardio Rate: regular rate Rhythm: regular rhythm GI Inspection: Yes normal to inspection Neuro General: patient oriented x3 and moves all extremities Cranial nerves: Yes Equal, round and reactive pupils present Cognition (Neuro): normal cognition Motor exam (neuro): 5/5 motor strength present throughout Sensory Exam: Normal double simultaneous stimulation for sensation Coordination: [id number] test normal Extrem Other: 4cm laceration to the right 2nd toe just proximal of the proximal nail fold that goes half way around the toe General: Yes full ROM and Yes capillary refill normal Psych Appearance: grossly normal Mental Status: mental status grossly normal Affect: normal affect Attitude: cooperative Thought process: Normal thought process present Thought content: Normal thought content present Insight: Good insight present (Psych) Procedures Laceration Laceration 1: Site: other (2nd toe) Side (If applicable): right Size (cm): 4 Description: irregular Depth: simple, single layer Local Anesthetic: lidocaine 1% Amount of anesthesia used (mL): 4 Pre-repair: wound explored, irrigated extensively and deep structures intact Skin layer closed with: other (prolene) Size (cm): 6-0 Number of sutures: 5 Technique: simple, interrupted Orthopedic Splinting/Casting Injury #1: Side: right Lower Extremity Injury Location: toe Lower Extremity Immobilizer: post-op shoe Medical Decision Making MDM Narrative Medical decision making narrative: Patient is a 67 year old female presenting to the emergency department today with a 2nd right toe laceration. Patient's physical exam showed a 4cm laceration extending from the medial aspect of the toe, proximal to the proximal nail fold, to the lateral aspect of the toe. Patient's right foot x-ray showed a fracture of the right 2nd toe. I explained my physical exam findings as well as all test results to the patient. I answered all questions asked by the patient. Patient's laceration was repaired, per procedure note. Patient's wound was as well approximated as possible given the amount of tissue damage and swelling. Patient's PMS was present prior to and after the repair. Patient's right foot was placed in a post-op shoe, without incident. Patient's PMS was in tact prior to and after post-op shoe placement. Patient was given a dose of Augmentin here. I stressed the importance of the patient taking her medication as prescribed. I stressed the importance of the patient following up with her primary care provider and an orthopedist. I stressed the importance of the patient returning to the emergency department immediately if her symptoms were to worsen or if she were to develop any dizziness, shortness of breath, difficulty breathing, chest pain, blurry vision, loss of vision, nausea, vomiting, abdominal pain, fever, chills, back pain, or any other complaints. Patient verbalized agreement and understanding with this treatment plan and discharge. Medical Records Medical records reviewed: Yes I reviewed the patient's medical records. Imaging Data Right foot x-ray: Attestation: I personally reviewed and interpreted this imaging study as follows: My impression: 2nd toe fracture. Radiologist's impression: EXAMINATION: XR FOOT, RIGHT CLINICAL INFORMATION: Laceration? COMPARISON: None? TECHNIQUE: AP, lateral, and oblique views of the right foot. XR/XR foot RT 2V FINDINGS/IMPRESSION: Comminuted fracture of the second distal phalangeal tuft is associated soft tissue swelling laceration distally. No additional fractures. Degenerative changes of the tibiotalar joint. Large plantar calcaneal enthesophyte.? Dictated By: Robb Bailey MD Signed By: Electronically signed by Robb Bailey MD 07/09/22 0144 Discharge Plan Discharge Clinical Impression: Laceration of toe, Fracture of toe Patient Disposition: Home, Self-Care Instructions: Care For Your Stitches (ED), Toe Fracture (ED), Post Surgical Shoe (ED) Additional Instructions: Have your stitches evaluated for removal in 10-14 days. Do NOT soak the repaired area. Perform daily wound checks and daily dressing changes. Follow up with your primary care provider and an orthopedic provider. Return to the emergency department immediately if your symptoms worsen or if you develop any dizziness, shortness of breath, difficulty breathing, chest pain, blurry vision, loss of vision, nausea, vomiting, abdominal pain, fever, chills, back pain, or any other complaints. Prescriptions: New amoxicillin-pot clavulanate 875-125 mg tablet 1 tab PO BID 10 Days Qty: 20 0RF No Action oxycodone 5 mg tablet 5 mg PO Q4H PRN (Reason: Pain, Moderate (Pain Scale 4-6) 7 Days Qty: 42 0RF docusate sodium [Colace] 100 mg Capsule 100 mg PO BID acetaminophen 325 mg Tablet 650 mg PO Q6H PRN (Reason: Pain, Mild (Pain Scale 1-3)) 30 Days Qty: 240 0RF aspirin 325 mg Tablet 325 mg PO BID 42 Days Qty: 84 0RF lisinopril 10 mg tablet 10 mg PO DAILY hydrochlorothiazide 12.5 mg tablet 12.5 mg PO DAILY amoxicillin 500 mg tablet 2,000 mg PO ONCE 1 Days Qty: 4 3RF Rx Instructions: take 4 capsules 1 hr prior to dental procedure Referrals: [facility] [place] Family Medicine [Provider Group] (Call to establish and follow up with a primary care provider. If you already have a primary care provider, please follow up with them. ) [facility] [place] Primary Care, [facility] [Provider Group] (Call to establish and follow up with a primary care provider. If you already have a primary care provider, please follow up with them. ) [facility] [place] Primary Care,[facility] [Provider Group] (Call to establish and follow up with a primary care provider. If you already have a primary care provider, please follow up with them. ) [facility] Orthopedic Surgeons [Provider Group] (Call to establish and follow up with an orthopedic provider. ) [facility] Wound Care Management [Provider Group] (Call to establish and follow up with the wound care center. ) Interventions: ED Discharge Assessment Last Done: 07/09/22 02:31 Discharge Date/Time: 07/09/22 02:32 Print Language: Croatian
[2022-07-09 01:01] VITALS: BP 116/98; PULSE 67; RESP 18; TEMP 36.6; O2SAT 98
--- NOTE | 2022-07-09 01:23 | PC.NURSE ---
Assumed care of pt at 1315. Pt states a glass bottle landed on her second toe on her R foot while recycling.
[2022-07-09] MEDS: Lidocaine HCl 1 % MPF 2 ML VIAL 4 ML INFILTRATI (01:48)
[2022-07-09 02:00] VITALS: BP 145/78; PULSE 73; RESP 16; TEMP 36.6; O2SAT 96
--- NOTE | 2022-07-09 02:27 | PC.NURSE ---
Pt a&o, no sob or chest pain. pt has positive cms and pedals pulses to right foot. provider in to assess pt. Boot applied to foot. pt tolerated it well. Will medicate per Mar and discharge home.
[2022-07-09] MEDS: Amoxicillin/Potassium Clav 875 MG TABLET PO (02:30)
== END 2022-07-09 02:32 | disposition home or self-care (01) ==
PROVIDERS: Emergency Provider Emergency Medicine Emergency Medical Services
DX: S91.114A Laceration without foreign body of right lesser toe(s) without damage to nail, initial encounter (principal); W20.8XXA Other cause of strike by thrown, projected or falling object, initial encounter; Y93.89 Activity, other specified; Y92.017 Garden or yard in single-family (private) house as the place of occurrence of the external cause; Y99.9 Unspecified external cause status
CPT/HCPCS: 12042; 73620; 99284

== ENCOUNTER 2022-07-20 09:33 | Outpatient (REF) | payer OTHER, SELFPAY ==
--- NOTE | ~2022-07-20 | XR_ITS ---
EXAMINATION: XR FOOT, RIGHT CLINICAL INFORMATION: Displaced fracture fifth metatarsal. COMPARISON: X-ray of the right foot 07/09/2022. TECHNIQUE: AP, lateral, and oblique views of the right foot. FINDINGS: Distal Phalanx Second Toe: There is fragmentation of the distal aspect of the tuft and persistent soft tissue prominence surrounding this compatible with edema or cellulitis. Unchanged compared to prior. Plantar calcaneal spur unchanged. Remaining bones and joints unremarkable. XR/XR foot RT min 3V IMPRESSION: Marked abnormality of the distal phalanx of the second toe of uncertain etiology but unchanged. This could be due to fracture or osteomyelitis.
== END 2022-07-20 09:34 | disposition home or self-care (01) ==
LOC: HO.HOSX 09:33
PROVIDERS: Visit Provider Physician Assistant
DX: S92.351A Displaced fracture of fifth metatarsal bone, right foot, initial encounter for closed fracture (principal); X58.XXXA Exposure to other specified factors, initial encounter; Y93.9 Activity, unspecified; Y92.9 Unspecified place or not applicable; Y99.9 Unspecified external cause status
CPT/HCPCS: 73630

== ENCOUNTER 2022-12-19 09:27 | Outpatient (REF) | payer OTHER, SELFPAY ==
--- NOTE | ~2022-12-19 | XR_ITS ---
EXAMINATION: KNEE X-RAY CLINICAL INFORMATION: Pain COMPARISON: Previous x-rays most recent March 2022 TECHNIQUE: Standing AP view of both knees and lateral and sunrise view of the right knee FINDINGS: Right: There is a 3 component right knee replacement. No fracture, dislocation or x-ray evidence of loosening. There is a small joint effusion. There is increasing soft tissue calcification or ossification , question anterior to versus in the suprapatellar bursa. This is best appreciated on the lateral view and appears increased. Soft tissues are otherwise normal. Standing AP view of the left knee demonstrates arthritis at the femoral tibial joints. XR/XR knee RT 2V IMPRESSION: Right: Satisfactory appearance of right knee replacement. Small joint effusion. Increasing soft tissue calcification or ossification anterior to the suprapatellar bursa. Left: Mild arthritis.
--- NOTE | ~2022-12-19 | XR_ITS ---
EXAMINATION: KNEE X-RAY CLINICAL INFORMATION: Pain COMPARISON: Previous x-rays most recent March 2022 TECHNIQUE: Standing AP view of both knees and lateral and sunrise view of the right knee FINDINGS: Right: There is a 3 component right knee replacement. No fracture, dislocation or x-ray evidence of loosening. There is a small joint effusion. There is increasing soft tissue calcification or ossification , question anterior to versus in the suprapatellar bursa. This is best appreciated on the lateral view and appears increased. Soft tissues are otherwise normal. Standing AP view of the left knee demonstrates arthritis at the femoral tibial joints. XR/XR knee standing BI IMPRESSION: Right: Satisfactory appearance of right knee replacement. Small joint effusion. Increasing soft tissue calcification or ossification anterior to the suprapatellar bursa. Left: Mild arthritis.
== END 2022-12-19 09:28 | disposition home or self-care (01) ==
LOC: HO.HOSX 09:27
PROVIDERS: Visit Provider Orthopaedic Surgery
DX: Z96.651 Presence of right artificial knee joint (principal)
CPT/HCPCS: 73560; 73565

== ENCOUNTER 2023-12-08 09:09 | Outpatient (REF) | payer OTHER, SELFPAY ==
--- NOTE | ~2023-12-08 | XR_ITS ---
EXAMINATION: XR ELBOW, RIGHT CLINICAL INFORMATION: Pain. COMPARISON: None available. TECHNIQUE: AP, lateral, and oblique views of the right elbow. FINDINGS: There is bony demineralization. There are marked osteoarthritic changes of the articular surfaces of the elbow. Intra-articular loose bodies are questioned, versus prominent osteophytosis. No acute fracture, dislocation joint effusion is seen. There is chondrocalcinosis. No foreign body is seen. XR/XR elbow LT min 3V IMPRESSION: 1. There is marked osteoarthritis. 2. Intra-articular loose bodies are questioned, versus prominent osteophytes. 3. There is chondrocalcinosis, which can be associated with CPPD. EXAMINATION: XR ELBOW, LEFT CLINICAL INFORMATION: Pain. COMPARISON: None available. TECHNIQUE: AP, lateral, and oblique views of the left elbow. FINDINGS: There is bony demineralization. There is moderate osteoarthritic change of the articular surfaces of the elbow. As with the contralateral side, intra-articular loose bodies are questioned, versus prominent osteophytes. No acute fracture, dislocation or joint effusion is seen. There is chondrocalcinosis. No foreign body is seen. IMPRESSION: 1. There is moderate osteoarthritis. 2. Intra-articular loose bodies are questioned, versus prominent osteophytes. 3. There is chondrocalcinosis, which can be associated with CPPD.
--- NOTE | ~2023-12-08 | XR_ITS ---
EXAMINATION: XR ELBOW, RIGHT CLINICAL INFORMATION: Pain. COMPARISON: None available. TECHNIQUE: AP, lateral, and oblique views of the right elbow. FINDINGS: There is bony demineralization. There are marked osteoarthritic changes of the articular surfaces of the elbow. Intra-articular loose bodies are questioned, versus prominent osteophytosis. No acute fracture, dislocation joint effusion is seen. There is chondrocalcinosis. No foreign body is seen. XR/XR elbow RT min 3V IMPRESSION: 1. There is marked osteoarthritis. 2. Intra-articular loose bodies are questioned, versus prominent osteophytes. 3. There is chondrocalcinosis, which can be associated with CPPD. EXAMINATION: XR ELBOW, LEFT CLINICAL INFORMATION: Pain. COMPARISON: None available. TECHNIQUE: AP, lateral, and oblique views of the left elbow. FINDINGS: There is bony demineralization. There is moderate osteoarthritic change of the articular surfaces of the elbow. As with the contralateral side, intra-articular loose bodies are questioned, versus prominent osteophytes. No acute fracture, dislocation or joint effusion is seen. There is chondrocalcinosis. No foreign body is seen. IMPRESSION: 1. There is moderate osteoarthritis. 2. Intra-articular loose bodies are questioned, versus prominent osteophytes. 3. There is chondrocalcinosis, which can be associated with CPPD.
== END 2023-12-08 09:10 | disposition home or self-care (01) ==
LOC: HO.HOSX 09:09
PROVIDERS: PCP Internal Medicine; Visit Provider Physician Assistant
DX: M77.11 Lateral epicondylitis, right elbow (principal); M19.021 Primary osteoarthritis, right elbow; M19.022 Primary osteoarthritis, left elbow
CPT/HCPCS: 73080

== ENCOUNTER 2023-12-08 09:09 | Outpatient (AMB) | payer OTHER, SELFPAY ==
--- NOTE | 2023-12-08 09:17 | MHC.OFFVIS ---
Intake Vital Signs 12/08/23 09:21 Height 5 ft 6 in Weight 240 lb BMI 38.7 Intake Visit Reasons: new Prob-bilateral elbow pain Intake Note: Julia 68 yr old female who is right hand dominant presents today for a new problem visit for bilateral elbow pain for the last 20 years. States her right is worse. States she has constant pain and is limited ROM which has worsen in the last 6months. Has pain radiating to her shoulder on her right side. Also has numbness and tingling in her right hand. Denies injury and believe this may be O.A. Allergies No Known Allergies Allergy (Verified 12/08/23 09:21) HPI new Prob-bilateral elbow pain HPI Details 68-year-old right hand dominant female who presents to the office today for evaluation of bilateral elbow pain for about 20 years. She states she has pain in her bilateral elbow which is worse in her right elbow. She states she as constant pain and limited ROM in her elbows which has worsened for the past 6 months. Her pain radiates down to her shoulder on the right elbow. She also c/o numbness and tingling in her right hand. She denies any previous injury on her elbows. [facility]LY [facility] Medical History Laurie-Danlos syndrome Hyperlipidemia Hypertension Osteoarthritis Surgical History History of total right knee replacement Hx of right inguinal hernia repair History of bowel resection Hx of colonoscopy History of total left hip replacement Family History Father No problems noted. Mother No problems noted. Social History (Updated 12/08/23 @ 09:22 by ANITA Riley) Household Members: Friend(s) Household Members Other:: Room mate Housing: House Are you a primary client care coordinator to a significant other at home: No Do you presently have visiting nurse or other home services: No Alcohol intake: current Alcohol intake frequency: holidays/special occasions only Patient Tobacco Use Status: Never used Tobacco Tobacco use type: Cigarette e-Cigarette/Vaping Use: Never Used Second Hand Smoke Exposure: No Substance Use Type: Marijuana service: No Current occupational status: employed Current occupation: research program internship/ [employer] Review of Systems Const All systems reviewed & are unremarkable except as noted in HPI and below Physical Exam Vital Signs: BMI result Body Mass Index 38.7 Extrem Other: Right elbow: Skin intact. No erythema or swelling. ROM full without pain. Tenderness over the lateral epicondyle and pain with resisted wrist extension. NVI. Results Reviewed Results Reviewed: Xrays were obtained in the office today and personally reviewed by of namita elbows show severe oa with osteophyte formation Assessment & Plan Assessment & Plan (1) Lateral epicondylitis, right elbow: Code(s): M77.11 - Lateral epicondylitis, right elbow (2) Osteoarthritis of elbows, bilateral: Code(s): M19.021 - Primary osteoarthritis, right elbow; M19.022 - Primary osteoarthritis, left elbow Qualifiers: Osteoarthritis type: primary Qualified Code(s): M19.021 - Primary osteoarthritis, right elbow; M19.022 - Primary osteoarthritis, left elbow Plan She was given a counter force brace in the office today which she will wear with activities and working. We discussed benefits of steroid injection and she would like to hold off on injection at this time. I did explain her that this is primarily an overuse injury and modification of activities is the coelho. If symptoms persist or worsens, patient will contact the office. I also gave her home exercises to work on and explain her that with the arthritis of her elbow, it is more about limitations of activities as there is no surgery which proved to be quite successful considering how active she is. She is content with this plan and she will see me back as needed. Orders: Orders XR elbow LT min 3V Today M25.522 - Pain in left elbow XR elbow RT min 3V Today M25.521 - Pain in right elbow Patient Instructions: Scribed for Sirisha Johnson PA-C, by Roland Weinstein medical records supervisor, on 12/08/2023 at 9:30 AM ESTER. Sirisha Dolan PA-C, have personally reviewed and agree with the information entered by the scribe. Coding Level of Care Code Est Pt Level 3 (71671) Diagnoses Lateral epicondylitis, right elbow M77.11 Primary osteoarthritis of both elbows M19.021; M19.022 Osteoarthritis type: primary
[2023-12-08 09:21] VITALS: BMI 38.7
== END 2023-12-08 09:59 | disposition home or self-care (01) ==
PROVIDERS: PCP Internal Medicine; Visit Provider Physician Assistant
DX: M77.11 Lateral epicondylitis, right elbow (principal); M19.021 Primary osteoarthritis, right elbow; M19.022 Primary osteoarthritis, left elbow
CPT/HCPCS: 99213

== ENCOUNTER 2024-02-14 10:43 | Emergency (ER) | payer OTHER, SELFPAY ==
--- NOTE | 2024-02-14 | ECG_ITS ---
Test Reason : chest tightness Blood Pressure : / mmHG Vent. Rate : 063 BPM Atrial Rate : 063 BPM P-R Int : 132 ms QRS Dur : 112 ms QT Int : 402 ms P-R-T Axes : 077 -71 060 degrees QTc Int : 411 ms Normal sinus rhythm Left anterior fascicular block Possible Anterior infarct , age undetermined Abnormal ECG When compared with ECG of 09-DEC-2021 13:19, Possible Anterior infarct is now Present Referred By: Generic ED Physician Electronically Signed By:DIANE MENA MD
--- NOTE | ~2024-02-14 | XR_ITS ---
EXAMINATION: XR CHEST CLINICAL INFORMATION: Chest tightness COMPARISON: None available. TECHNIQUE: 2 views of the chest were obtained. FINDINGS: Lungs hyperaerated with minor chronic pleural blunting and mamillation of the right hemidiaphragm. Heart size normal with normal caliber pulmonary vessels. XR/XR chest 2V IMPRESSION: No active disease.
[2024-02-14 12:00] VITALS: BP 131/53; PULSE 56; RESP 20; TEMP 36.9; O2SAT 93; BMI 37.6
--- NOTE | 2024-02-14 12:02 | ED.GENADULT ---
HPI - General Adult General Chief complaint: Upper Respiratory Symptoms Stated complaint: Chest Tightness Diff Breathing Related Data Home Medications ?Medication ?Instructions ?Recorded ?Confirmed hydrochlorothiazide 12.5 mg tablet 12.5 mg PO DAILY 01/20/21 01/06/22 lisinopril 10 mg tablet 10 mg PO DAILY 01/20/21 01/06/22 ibuprofen 800 mg tablet 800 mg PO Q8H PRN pain 12/19/22 Previous Rx's ?Medication ?Instructions ?Recorded acetaminophen 325 mg tablet 650 mg (2 x 325 mg) PO Q6H PRN 12/23/21 Pain, Mild (Pain Scale 1-3) 30 days #240 tabs Allergies Allergy/AdvReac Type Severity Reaction Status Date / Time No Known Allergies Allergy Verified 02/14/24 12:01 [facility] Past Medical History Medical History Laurie-Danlos syndrome Hyperlipidemia Hypertension Osteoarthritis Surgical History History of total right knee replacement Hx of right inguinal hernia repair History of bowel resection Hx of colonoscopy History of total left hip replacement Family History Family History Father No problems noted. Mother No problems noted. Social History Social History (Updated 12/08/23 @ 09:22 by ANITA Riley) Household Members: Friend(s) Household Members Other:: Room mate Housing: House Are you a primary day care aide to a significant other at home: No Do you presently have visiting nurse or other home services: No Alcohol intake: current Alcohol intake frequency: holidays/special occasions only Patient Tobacco Use Status: Never used Tobacco Tobacco use type: Cigarette e-Cigarette/Vaping Use: Never Used Second Hand Smoke Exposure: No Substance Use Type: Marijuana Advance Directives: No Advance Directives Information Provided: No service: No Current occupational status: employed 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 68-year-old female hx of HTN, HDL, OA here w/ chest tightness/ discomfort and cough x1 week. In by her PCP for this and discharged home with an inhaler and Tessalon Perles which she has been taking without relief. Denies known sick contacts. Denies fever, chills, N/V, sore throat. labs, serology, EKG, CXR ordered. Full HPI, ROS and PE to be performed by the primary ED provider. Reevaluation(s) Reevaluation #1: Patient left the ED without completing treatment. Medical Decision Making Lab Data 02/14/24 12:11 02/14/24 12:11 Labs: Lab Results 02/14/24 02/14/24 Range/Units 12:11 16:01 WBC 5.3 (4.8-10.8) X10*3/uL RBC 3.38 L D (4.20-5.50) X10*6/uL Hgb 12.0 D (12.0-16.0) g/dl Hct 34.8 L D (37.0-47.0) % MCV 103.0 H (80.0-98.0) fL MCH 35.5 H (27.0-33.0) pg MCHC 34.5 (31.0-35.0) g/dl RDW 13.1 (11.0-16.0) % Plt Count 152 L (160-400) X10*3/uL MPV 8.7 L (9.4-12.3) fL Immature Gran % (Auto) 0.2 (0.0-0.4) % Neut % (Auto) 59.4 (45-73) % Lymph % (Auto) 23.3 (20-40) % [place] % (Auto) 13.1 H (2-11) % Eos % (Auto) 3.4 (0-4) % Baso % (Auto) 0.6 (0-2) % Lymph # (Auto) 1.2 (1.2-4.9) X10*3/uL [place] # (Auto) 0.7 (0.1-1.2) X10*3/uL Eos # (Auto) 0.2 (0.0-0.4) X10*3/uL Baso # (Auto) 0.0 (0.0-0.2) X10*3/uL Abs Immat Gran (auto) 0.01 (0.00-0.03) X10*3/uL Absolute Neuts (auto) 3.1 (2.0-8.3) x10*3/uL Absolute Nucleated RBC 0.000 (0.0-0.012) X10*3/uL Nucleated RBC % (auto) 0.0 (0.0-0.2) /100WBC Sodium 141 (135-145) mmol/L Potassium 4.4 (3.3-5.1) mmol/L Chloride 106 (96-108) mmol/L Carbon Dioxide 27 (22-29) mmol/L Anion Gap 12 (12-20) BUN 22 H (9-16) mg/dL Creatinine 0.86 (0.5-1.4) mg/dL Estim Creat Clear Calc 75.8 Estimated GFR > 60 Random Glucose 100 (60-115) mg/dL Calcium 10.0 D (8.4-10.2) mg/dL Magnesium 1.9 (1.6-2.6) mg/dL Total Bilirubin 1.2 H (0.0-1.0) mg/dL AST 37 H (5-31) U/L ALT 20 (0-31) U/L Alkaline Phosphatase 55 (39-117) U/L Troponin I High Sens 3.6 4.6 (<3.5-17.0) ng/L Total Protein 7.5 (6.5-8.0) g/dL Albumin 4.2 (3.5-5.0) g/dL Lipase 38 (8-78) U/L Influenza Type A (PCR) NEGATIVE (Negative) Influenza Type B (PCR) NEGATIVE (Negative) RSV RNA Qual (PCR) NEGATIVE (Negative) SARS-CoV-2 RNA (RT-PCR) NEGATIVE (Negative) Discharge Plan Discharge Clinical Impression: Chest pain Patient Disposition: Left W/O Completing Treatment Prescriptions: No Action acetaminophen 325 mg Tablet 650 mg PO Q6H PRN (Reason: Pain, Mild (Pain Scale 1-3)) 30 Days Qty: 240 0RF lisinopril 10 mg tablet 10 mg PO DAILY hydrochlorothiazide 12.5 mg tablet 12.5 mg PO DAILY ibuprofen 800 mg tablet 800 mg PO Q8H PRN (Reason: pain) Discharge Date/Time: 02/14/24 20:18
[2024-02-14 12:17] LABS: MANUAL DIFF FLAG NO
[2024-02-14 12:21] LABS: Basophils Percent Auto 0.6 % (0-2); Eosinophils Absolute Auto 0.2 X10*3/uL (0.0-0.4); Eosinophils Percent Auto 3.4 % (0-4); Hematocrit 34.8 % (37.0-47.0); Imm Gran Abs Auto 0.01 X10*3/uL (0.00-0.03); Imm Gran Pct Auto 0.2 % (0.0-0.4); Lymphocytes Absolute Auto 1.2 X10*3/uL (1.2-4.9); Lymphocytes Percent Auto 23.3 % (20-40); Mean Corpuscular HGB Conc 34.5 g/dl (31.0-35.0); Mean Corpuscular Hemoglobin 35.5 pg (27.0-33.0); Mean Platelet Volume 8.7 fL (9.4-12.3); Monocytes Absolute Auto 0.7 X10*3/uL (0.1-1.2); Monocytes Percent Auto 13.1 % (2-11); Neutrophils Absolute Auto 3.1 x10*3/uL (2.0-8.3); Neutrophils Percent Auto 59.4 % (45-73); Platelet Count 152 X10*3/uL (160-400); Red Blood Count 3.38 X10*6/uL (4.20-5.50); Red Cell Distribution Width 13.1 % (11.0-16.0); White Blood Count 5.3 X10*3/uL (4.8-10.8)
[2024-02-14 12:39] LABS: Troponin-I High Sensitivity 3.6 ng/L (<3.5-17.0)
[2024-02-14 12:44] LABS: Alanine Aminotransferase 20 U/L (0-31); Albumin Level 4.2 g/dL (3.5-5.0); Alkaline Phosphatase 55 U/L (39-117); Anion Gap 12 (12-20); Aspartate Amino Transferase 37 U/L (5-31); Bilirubin Total 1.2 mg/dL (0.0-1.0); Blood Urea Nitrogen 22 mg/dL (9-16); Carbon Dioxide 27 mmol/L (22-29); Chloride 106 mmol/L (96-108); Creatinine Clr Calc Pharmacy 75.8; Estimated Glomerular Filt Rate > 60; Glucose Random 100 mg/dL (60-115); Lipase 38 U/L (8-78); Magnesium 1.9 mg/dL (1.6-2.6); Potassium 4.4 mmol/L (3.3-5.1); Sodium 141 mmol/L (135-145); Total Protein 7.5 g/dL (6.5-8.0)
[2024-02-14 12:55] LABS: Influenza A PCR NEGATIVE (Negative); Influenza B PCR NEGATIVE (Negative); Resp Syncy Virus RNA Qual PCR NEGATIVE (Negative); SARS COV2 PCR INHOUSE NEGATIVE (Negative)
[2024-02-14 16:41] VITALS: BP 105/65; PULSE 66; RESP 14; TEMP 36.7; O2SAT 95
[2024-02-14 17:10] LABS: Troponin-I High Sensitivity 4.6 ng/L (<3.5-17.0)
== END 2024-02-14 20:18 | disposition left against medical advice (07) ==
PROVIDERS: Physician Assistant Medical; Emergency Provider Emergency Medicine; PCP Internal Medicine
DX: R07.89 Other chest pain (principal); R06.02 Shortness of breath; Z79.899 Other long term (current) drug therapy; Z11.52 Encounter for screening for COVID-19; Z20.822 Contact with and (suspected) exposure to COVID-19
CPT/HCPCS: 0241U; 36415; 71046; 80053; 83690; 83735; 84484; 85025; 93005; 99283

== ENCOUNTER → 2024-02-14 10:53 | Outpatient (BNV) | payer OTHER, SELFPAY | PROVIDERS: PCP Internal Medicine; Visit Provider Internal Medicine Cardiovascular Disease | DX: R94.31 Abnormal electrocardiogram [ECG] [EKG] (principal) | CPT/HCPCS: 93010 ==